=== PATIENT | male | born 1985 ===

== ENCOUNTER 2020-11-24 10:59 | Inpatient (IN) | payer OTHER ==
--- NOTE | 2020-11-24 12:12 | Event Note ---
ED Screening Note Date of service: 11/24/20 Time: 12:08 ED Screening Note: 35-year-old male presents to the emergency room complaining of right upper abdominal pain. He states has been going on for 2 days and last night it got worse. Patient denies any fever chills no nausea no vomiting. He states that he is just having small amount of urine but no blood in his urine. Patient reports he had taken a medication called Mavidol which appears to be Toradol 30 mg for pain. Patient denies any known drug allergies. This initial assessment/diagnostic orders/clinical plan/treatment(s) is/are subject to change based on patients health status, clinical progression and re- assessment by fellow clinical providers in the ED. Further treatment and workup at subsequent clinical providers discretion. Patient/guardian urged not to elope from the ED as their condition may be serious if not clinically assessed and managed. Initial orders include: CBC CMP urinalysis lipase and CT abdomen pelvis with contrast as patient has right upper quadrant pain and tenderness.
[2020-11-24 12:52] LABS: Amorphous Crystals,Urine Few; Bilirubin,Urine NEG (Negative); Blood,Urine SM (Negative); Color,Urine Yellow (Yellow); Mucus,Urine FEW /HPF; Protein,Urine <15 mg/dL mg/dL (Negative); Urobilinogen,Urine < 2.0 mg/dL (<2.0)
[2020-11-24 12:56] LABS: Basophils % (Auto) 0.4 % (0.0-1.8); Eosinophils % (Auto) 0.3 % (0.0-4.3); Hematocrit 43.7 % (35.5-45.6); Hemoglobin 14.9 gm/dl (11.8-15.2); Lymphocytes # (Auto) 1.2 K/mm3 (1.2-5.4); Lymphocytes % (Auto) 10.6 % (13.4-35.0); Mean Corpuscular HGB Conc 34 % (32-34); Mean Corpuscular Volume 92 fl (84-94); Monocytes # (Auto) 0.7 K/mm3 (0.0-0.8); Monocytes % (Auto) 6.2 % (0.0-7.3); Platelet Count 163 K/mm3 (140-440); Red Blood Count 4.75 M/mm3 (3.65-5.03); Red Cell Distribution Width 13.7 % (13.2-15.2)
[2020-11-24 13:09] LABS: Alanine Aminotransferase 335 units/L (7-56); Albumin 4.3 g/dL (3.9-5); BUN/Creatinine Ratio 13; Blood Urea Nitrogen 12 mg/dL (9-20); Hemolysis Index 5
--- NOTE | 2020-11-24 13:39 | Emergency Department Report ---
ED Abdominal Pain HPI - General Chief Complaint: Abdominal Pain Stated Complaint: STOMACH PAIN Time Seen by Provider: 11/24/20 12:00 Source: patient Mode of arrival: Ambulatory Limitations: No Limitations - History of Present Illness Initial Comments: Patient presents with abdominal pain. He is complaining of pain in epigastric and right upper quadrant areas. The started yesterday and magnified today. He states that he ate something today that made the pain worse. He has had no fevers or chills but there is no cough congestion. He does report nausea without vomiting. There is no hematemesis or coffee-ground emesis. Has no melenic stool. He states that years ago he was told that he had inflammation in his gallbladder. He believes that that could be the same thing. He has no back pain associated with this. There is no fevers or chills per there is no trauma. Pain is constant. It does not radiate or migrate. It is worse by palpation and movement. - Related Data Allergies Allergy/AdvReac Type Severity Reaction Status Date / Time No Known Allergies Allergy Verified 11/24/20 11:52 ED Review of Systems ROS: Stated complaint: STOMACH PAIN Other details as noted in HPI Comment: All other systems reviewed and negative Constitutional: denies: fever Eyes: denies: eye pain ENT: denies: throat pain Respiratory: denies: cough Cardiovascular: denies: chest pain Endocrine: denies: unexplained weight loss Gastrointestinal: as per HPI Genitourinary: denies: dysuria Musculoskeletal: denies: back pain Skin: denies: rash Neurological: denies: headache Hematological/Lymphatic: denies: easy bruising ED Past Medical Hx - Past Medical History Previous Medical History?: No - Surgical History Past Surgical History?: No - Family History Family history: other (Gallbladder disease) ED Physical Exam - General Limitations: No Limitations - Head Head exam: Present: atraumatic, normocephalic, normal inspection - Eye Eye exam: Present: normal appearance, PERRL. Absent: scleral icterus, conjunctival injection - ENT ENT exam: Present: normal exam, normal orophraynx, mucous membranes moist - Neck Neck exam: Present: normal inspection. Absent: meningismus - Respiratory Respiratory exam: Present: normal lung sounds bilaterally. Absent: respiratory distress - Cardiovascular Cardiovascular Exam: Present: regular rate, normal rhythm - GI/Abdominal GI/Abdominal exam: Present: soft, tenderness (Right upper quadrant and epigastric), other (Obese). Absent: guarding, rebound - Extremities Exam Extremities exam: Present: normal capillary refill. Absent: pedal edema - Back Exam Back exam: Absent: CVA tenderness (R), CVA tenderness (L) - Neurological Exam Neurological exam: Present: alert, oriented X3, CN II-XII intact, reflexes normal. Absent: motor sensory deficit - Psychiatric Psychiatric exam: Present: normal affect, normal mood - Skin Skin exam: Present: warm, dry ED Course Vital Signs 11/24/20 11:53 Temperature 98.4 F Pulse Rate 78 Respiratory 16 Rate Blood Pressure 153/80 [Left] O2 Sat by Pulse 100 Oximetry - Reevaluation(s) Reevaluation #1: 11/24/20 13:39 IV labs ordered. Ultrasound was ordered. Reevaluation #2: 11/24/20 14:[address] of been noted. Surgery was paged. We will admit. ED Medical Decision Making - Lab Data Result diagrams: 11/24/20 12:29 11/24/20 12:29 - Medical Decision Making Patient presents with epigastric and right upper quadrant pain. He has evidence of gallstone pancreatitis with transaminitis. He does not have leukocytosis. He does not appear to be septic or toxic. We will proceed with admission. He certainly does not have peritoneal findings at this time. There is no concern for perforation. CT had reported some inflammation along the duodenum, but I believe this is all pancreatitis in nature. Case has been discussed with surgery and the hospitalist. Critical Care Time: No Critical care attestation.: If time is entered above; I have spent that time in minutes in the direct care of this critically ill patient, excluding procedure time. ED Disposition Clinical Impression: Transaminitis Pancreatitis due to biliary obstruction Qualifiers: Chronicity: acute Acute pancreatitis complication: no infection or necrosis Qualified Code(s): K85.10 - Biliary acute pancreatitis without necrosis or infection Cholelithiasis Qualifiers: Cholelithiasis location: gallbladder Cholecystitis presence: without cholecystitis Disposition: 09 ADMITTED INPATIENT Is pt being admited?: Yes Does the pt Need Aspirin: No Condition: Stable
--- NOTE | 2020-11-24 13:55 | Cat Scan Report ---
CT ABDOMEN AND PELVIS WITH CONTRAST HISTORY: Right upper quadrant pain and tenderness OMNI 300 100 ML. COMPARISON: None. TECHNIQUE: CT images of the abdomen and pelvis were obtained following administration of intravenous contrast. All CT scans at this location are performed using CT dose reduction for ALARA by means of automated exposure control. CONTRAST: 100 ml of intravenous contrast administered. FINDINGS: Lungs/bones: Lung bases are clear. No acute osseous abnormality. Abdomen/pelvis: There is inflammation tracking along the duodenal C-loop, greatest in the second/thi rd segments. Inflammation also extends along the pancreas. No obvious mass, obstruction, or stone dis ease. No biliary or pancreatic duct dilatation. Enlarged regional lymph nodes are noted, likely react yuniel. There is cholelithiasis without inflammation. There is hepatic steatosis. There is otherwise unremark able. The spleen, adrenals, right kidney, and remainder the proximal GI tract appear unremarkable. Th ere is punctate nonobstructive nephrolithiasis in the upper pole the left kidney measuring 1 mm. Urinary bladder and prostate are normal with no pelvic free fluid or acute colonic abnormality. The a ppendix is normal. IMPRESSION: 1. Inflammatory change centered along the second/third segments of the duodenum and possibly involvin g the pancreas. Differential considerations include duodenitis versus pancreatitis. Correlate with li pase level. 2. Additional incidental findings as above. Signer Name: Humberto Colon MD Signed: 11/24/2020 1:50 PM Workstation Name: [id number]
--- NOTE | 2020-11-24 14:13 | History and Physical Report ---
History of Present Illness Chief complaint: My stomach hurts History of present illness: 35 YO Male with Obesity presents to ED for evaluation. Patient reports "my stomach hurts". Patient states that he has experienced abdominal pain over the last 2 days with worsening symptoms over the last 12 hours. Patient localizes the epigastric area as the site of his pain. Patient states that pain is 5/10, constant nonradiating without exacerbating or alleviating factors. Patient transported to [facility] via private vehicle for further care and evaluation of the aforementioned symptoms. The patient was seen and evaluated in the emergency department. All lab and imaging studies reviewed. Patient with CT scan of the abdomen and pelvis as well as abdominal ultrasound and found to have evidence of gallstone pancreatitis. Surgical team consulted in ED. Patient admitted to medical floor and treated with supportive care, bowel rest. Patient denies fever, chills, chest pain, palpitation, productive cough, skin rash, recent ill contacts, known exposure to COVID-19. No prior admission for review. No medication listed at time of admission for reconciliation. Past History Past Medical History: No medical history, other (Reviewed) Past Surgical History: No surgical history, Other (Reviewed) Social history: single. denies: smoking, alcohol abuse, prescription drug abuse Family history: denies: no significant family history Medications and Allergies Allergies Allergy/AdvReac Type Severity Reaction Status Date / Time No Known Allergies Allergy Verified 11/24/20 11:52 Home Medications Medication Instructions Recorded Confirmed Last Taken Type No Known Home Medications [No 11/24/20 11/24/20 Unknown History Reported Home Medications] Review of Systems Constitutional: no weight loss, no weight gain, no fever, no chills Ears, nose, mouth and throat: no ear pain, no decreased hearing, no nose pain, no nasal discharge, no sinus pain Cardiovascular: no chest pain, no palpitations, no rapid/irregular heart beat, no syncope, no lightheadedness Respiratory: no cough, no excessive sputum, no shortness of breath Gastrointestinal: abdominal pain, no nausea, no diarrhea, no hematemesis Genitourinary Male: no dysuria, no hematuria, no flank pain, no urinary frequency, no urinary hesitancy Rectal: no pain, no incontinence, no bleeding Musculoskeletal: no neck stiffness, no neck pain, no shooting arm pain, no arm numbness/tingling, no redness of joints Integumentary: no rash, no redness, no sores, no jaundice, no boils, no blisters Neurological: no head injury, no transient paralysis, no paralysis, no weakness, no tingling, no tremors, no lack of coordination Psychiatric: no anxiety, no memory loss, no insomnia, no hypersomnia, no hallucinations Endocrine: no cold intolerance, no excessive thirst, no polydipsia, no nocturia Hematologic/Lymphatic: no easy bruising, no lymphedema Allergic/Immunologic: no allergic rhinitis, no anaphylaxis Exam - Constitutional Vitals: Temp Pulse Resp BP Pulse Ox 98.4 F 78 16 153/80 100 11/24/20 11:53 11/24/20 11:53 11/24/20 11:53 11/24/20 11:53 11/24/20 11:53 General appearance: Present: mild distress, obese - EENT Eyes: Present: PERRL ENT: hearing intact, clear oral mucosa - Neck Neck: Present: supple, normal ROM - Respiratory Respiratory effort: normal Respiratory: bilateral: CTA - Cardiovascular Heart Sounds: Present: S1 & S2. Absent: rub, click - Extremities Extremities: pulses symmetrical, No edema Peripheral Pulses: within normal limits - Abdominal General gastrointestinal: Present: soft, tender, non-distended, normal bowel sounds Male genitourinary: Present: normal - Integumentary Integumentary: Present: clear, warm, dry - Musculoskeletal Musculoskeletal: gait normal, strength equal bilaterally - Psychiatric Psychiatric: appropriate mood/affect, intact judgment & insight - Neurologic Neurologic: CNII-XII intact, moves all extremities Results - Labs CBC & Chem 7: 11/24/20 12:29 11/24/20 12:29 Labs: Abnormal lab results 11/24/20 11/24/20 Range/Units 12:29 12:29 Lymph % (Auto) 10.6 L (13.4-35.0) % Seg Neutrophils % 82.5 H (40.0-70.0) % Seg Neutrophils # 9.1 H (1.8-7.7) K/mm3 Glucose 108 H (75-100) mg/dL Total Bilirubin 1.60 H (0.1-1.2) mg/dL AST 226 H (5-40) units/L ALT 335 H (7-56) units/L Alkaline Phosphatase 170 H (35-129) units/L Lipase 1470 H (13-60) units/L Assessment and Plan - Patient Problems (1) Pancreatitis, gallstone Current Visit: Yes Status: Acute Plan to address problem: Bowel rest, IV fluid resuscitation therapy, surgical team consulted in ED, further care and evaluation as per surgical team in a.m., n.p.o. (2) Obesity hypoventilation syndrome Current Visit: Yes Status: Acute Plan to address problem: Balanced diet, increase physical activity at discharge, outpatient pulmonary follow-up for sleep study. (3) DVT prophylaxis Current Visit: Yes Status: Acute Plan to address problem: SCDs bilateral lower extremities while in bed, patient is ambulatory
[2020-11-24] MEDS ORDERED: ONDANSETRON 4 MG/2 ML INJ IV PRN (14:20)
[2020-11-24] MEDS ORDERED: ACETAMINOPHEN 325 MG TAB PO PRN (14:20)
[2020-11-24] MEDS ORDERED: ALBUTEROL 2.5 MG/3 ML NEBU IH PRN (14:20)
[2020-11-24] MEDS ORDERED: KETOROLAC 30 MG/1 ML INJ IV ONE (14:23)
--- NOTE | 2020-11-24 15:28 | Ultrasound Report ---
ULTRASOUND ABDOMEN, LIMITED (RIGHT UPPER QUADRANT) INDICATION: Right upper quadrant pain. COMPARISON: CT of the abdomen and pelvis earlier today. FINDINGS: Suboptimal study due to bowel gas. PANCREAS: Visualized portion shows no significant abnormality. LIVER: 15.6 cm in length with moderate generalized increased echogenicity and focal sparing adjacent to the gallbladder. GALLBLADDER: Multiple small gallstones. The gallbladder is normal in size without wall thickening. BILE DUCTS: No significant abnormality. Common bile duct measures 3.3 mm. FREE FLUID: None. ADDITIONAL FINDINGS: Images of the right kidney are unremarkable. IMPRESSION: 1. Cholelithiasis without sonographic evidence of acute cholecystitis. 2. Moderate diffuse fatty infiltration of the liver. Signer Name: Art Rodriguez MD Signed: 11/24/2020 3:23 PM Workstation Name: [id number]
[2020-11-24] MEDS: oxyCODONE /ACETAMINOPHEN 5-325MG TAB PO PRN (19:28)
[2020-11-25] MEDS: HYDROmorphone 1 MG/1 ML INJ IV PRN ×2 (00:13→09:07)
[2020-11-25] MEDS: SODIUM CHLORIDE 0.9% 1000 ML 1,000 ML IV SCH ×3 (00:13→21:03)
[2020-11-25 05:49] LABS: Alanine Aminotransferase 225 units/L (7-56); Albumin 3.9 g/dL (3.9-5); BUN/Creatinine Ratio 15; Blood Urea Nitrogen 12 mg/dL (9-20); Calcium 8.5 mg/dL (8.4-10.2); Hemolysis Index 8
--- NOTE | 2020-11-25 12:15 | Consultation ---
History of Present Illness Consult date: 11/25/20 Reason for consult: abdominal pain - History of present illness History of present illness: 35 yo male with 2 day h/o RUQ/epigastric pain with nausea without vomiting, fever or chills. Pt had similar pain about a year ago. Denies alcohol or NSAID use. Feels much better today. Past History Past Medical History: No medical history, other (Reviewed) Past Surgical History: No surgical history, Other (Reviewed) Social history: single. denies: smoking, alcohol abuse, prescription drug abuse Family history: denies: no significant family history Medications and Allergies Allergies Allergy/AdvReac Type Severity Reaction Status Date / Time No Known Allergies Allergy Verified 11/24/20 11:52 Home Medications Medication Instructions Recorded Confirmed Last Taken Type No Known Home Medications [No 11/24/20 11/24/20 Unknown History Reported Home Medications] Active Meds: Active Medications Acetaminophen (Acetaminophen 325 Mg Tab) 650 mg PO Q4H PRN PRN Reason: Pain MILD(1-3)/Fever >100.5/PAINTING Albuterol (Albuterol 2.5 Mg/3 Ml Nebu) 2.5 mg IH Q4HRT PRN PRN Reason: Shortness Of Breath Hydromorphone HCl (Hydromorphone 1 Mg/1 Ml Inj) 0.5 mg IV Q6H PRN PRN Reason: Pain , Severe (7-10) Last Admin: 11/25/20 09:07 Dose: 0.5 mg Documented by: Sodium Chloride (Nacl 0.9% 1000 Ml) 1,000 mls @ 125 mls/hr IV DIRECT SHARONDA Last Admin: 11/25/20 00:13 Dose: 125 mls/hr Documented by: Ondansetron HCl (Ondansetron 4 Mg/2 Ml Inj) 4 mg IV Q8H PRN PRN Reason: Nausea And Vomiting Last Admin: 11/24/20 19:28 Dose: 4 mg Documented by: Oxycodone/Acetaminophen (Oxycodone /Acetaminophen 5-325mg Tab) 1 tab PO Q12H PRN PRN Reason: Pain, Moderate (4-6) Last Admin: 11/24/20 19:28 Dose: 1 tab Documented by: Sodium Chloride (Sodium Chloride 0.9% 10 Ml Flush Syringe) 10 ml IV BID SHARONDA Last Admin: 11/25/20 09:07 Dose: 10 ml Documented by: Sodium Chloride (Sodium Chloride 0.9% 10 Ml Flush Syringe) 10 ml IV PRN PRN PRN Reason: LINE FLUSH Review of Systems All systems: negative (none) Exam Vital Signs Temp Pulse Resp BP Pulse Ox 98.4 F 78 16 153/80 100 11/24/20 11:53 11/24/20 11:53 11/24/20 11:53 11/24/20 11:53 11/24/20 11:53 - General physical appearance Positive: well developed, well nourished, no distress - Eyes Positive: PERRL, normal occular movement - ENT Positive: normal pinna, normal nares, normal mucosa, no hearing loss, no congestion - Neck Positive: no masses, no bruits, trachea midline, no venous distension - Respiratory Positive: normal expansion, normal respiratory effort, clear to auscultation - Cardiovascular Rhythm: regular Heart Sounds: Present: S1 & S2. Absent: rub, click - Extremities Extremities: no ischemia, pulses symmetrical, No edema - Breasts Breasts: normal, no mass, no skin changes - Abdomen Abdomen: Present: soft, bowel sounds normal. Absent: tender, distended Hernia: none - Genitourinary Male Genitourinary: normal Female Genitourinary: normal - Integumentary no rash, no growths, no abnormal pigmentation - Neurologic Neurologic: alert and oriented to time, place and person, motor strength and sensation are grossly intact - Musculoskeletal normal gait, normal posture - Psychiatric Psychiatric: appropriate mood/affect, intact judgment & insight Results - Labs 11/24/20 12:29 11/25/20 04:52 Abnormal lab results 11/24/20 11/24/20 11/25/20 Range/Units 12:29 12:29 04:52 Lymph % (Auto) 10.6 L (13.4-35.0) % Seg Neutrophils % 82.5 H (40.0-70.0) % Seg Neutrophils # 9.1 H (1.8-7.7) K/mm3 Carbon Dioxide 32 H (22-30) mmol/L Glucose 108 H (75-100) mg/dL Total Bilirubin 1.60 H (0.1-1.2) mg/dL AST 226 H 89 H (5-40) units/L ALT 335 H 225 H (7-56) units/L Alkaline Phosphatase 170 H 150 H (35-129) units/L Lipase 1470 H 641 H (13-60) units/L Diabetes panel 11/24/20 11/25/20 Range/Units 12:29 04:52 Sodium 139 141 (137-145) mmol/L Potassium 4.4 3.8 (3.6-5.0) mmol/L Chloride 102.4 104.6 (98-107) mmol/L Carbon Dioxide 29 32 H (22-30) mmol/L BUN 12 12 (9-20) mg/dL Creatinine 0.9 0.8 (0.8-1.3) mg/dL Glucose 108 H 92 (75-100) mg/dL Calcium 9.0 8.5 (8.4-10.2) mg/dL AST 226 H 89 H (5-40) units/L ALT 335 H 225 H (7-56) units/L Alkaline Phosphatase 170 H 150 H (35-129) units/L Total Protein 7.9 7.2 (6.3-8.2) g/dL Albumin 4.3 3.9 (3.9-5) g/dL Calcium panel 11/24/20 11/25/20 Range/Units 12:29 04:52 Calcium 9.0 8.5 (8.4-10.2) mg/dL Albumin 4.3 3.9 (3.9-5) g/dL Pituitary panel 11/24/20 11/25/20 Range/Units 12:29 04:52 Sodium 139 141 (137-145) mmol/L Potassium 4.4 3.8 (3.6-5.0) mmol/L Chloride 102.4 104.6 (98-107) mmol/L Carbon Dioxide 29 32 H (22-30) mmol/L BUN 12 12 (9-20) mg/dL Creatinine 0.9 0.8 (0.8-1.3) mg/dL Glucose 108 H 92 (75-100) mg/dL Calcium 9.0 8.5 (8.4-10.2) mg/dL Adrenal panel 11/24/20 11/25/20 Range/Units 12:29 04:52 Sodium 139 141 (137-145) mmol/L Potassium 4.4 3.8 (3.6-5.0) mmol/L Chloride 102.4 104.6 (98-107) mmol/L Carbon Dioxide 29 32 H (22-30) mmol/L BUN 12 12 (9-20) mg/dL Creatinine 0.9 0.8 (0.8-1.3) mg/dL Glucose 108 H 92 (75-100) mg/dL Calcium 9.0 8.5 (8.4-10.2) mg/dL Total Bilirubin 1.60 H 1.10 (0.1-1.2) mg/dL AST 226 H 89 H (5-40) units/L ALT 335 H 225 H (7-56) units/L Alkaline Phosphatase 170 H 150 H (35-129) units/L Total Protein 7.9 7.2 (6.3-8.2) g/dL Albumin 4.3 3.9 (3.9-5) g/dL - Imaging CT scan - abdomen: report reviewed CT scan - pelvis: report reviewed US - abdomen: report reviewed Assessment and Plan - Patient Problems (1) Acute pancreatitis Current Visit: Yes Status: Acute Plan to address problem: 1) CLD 2) Recommend GI consult 3) CBC, CMP and lipase tomorrow
[2020-11-25] MEDS: oxyCODONE /ACETAMINOPHEN 5-325MG TAB PO PRN (21:03)
[2020-11-26] MEDS: SODIUM CHLORIDE 0.9% 1000 ML 1,000 ML IV SCH ×3 (05:10→18:14)
--- NOTE | 2020-11-26 06:06 | Progress Note ---
Assessment and Plan Assessment and Plan - Patient Problems (1) Pancreatitis, gallstone Current Visit: Yes Status: Acute Plan to address problem: Patient symptomatically better Recheck lipase and amylase and LFTs (2) Obesity hypoventilation syndrome Current Visit: Yes Status: Acute Plan to address problem: Balanced diet, increase physical activity at discharge, outpatient pulmonary follow-up for sleep study. Check echocardiogram for ejection fraction (3) DVT prophylaxis Current Visit: Yes Status: Acute Plan to address problem: SCDs bilateral lower extremities while in bed, patient is ambulatory Discharge planning issues If patient stable and pain-free patient can be discharged tomorrow Check echocardiogram Subjective Date of service: 11/25/20 Principal diagnosis: Acute pancreatitis Interval history: 35 YO Male with Obesity presents to ED for evaluation. Patient reports "my stomach hurts". Patient states that he has experienced abdominal pain over the last 2 days with worsening symptoms over the last 12 hours. Patient localizes the epigastric area as the site of his pain. Patient states that pain is 5/10, constant nonradiating without exacerbating or alleviating factors. Patient transported to [facility] via private vehicle for further care and evaluation of the aforementioned symptoms. The patient was seen and evaluated in the emergency department. All lab and imaging studies reviewed. Patient with CT scan of the abdomen and pelvis as well as abdominal ultrasound and found to have evidence of gallstone pancreatitis. Surgical team consulted in ED. Patient admitted to medical floor and treated with supportive care, bowel rest. Patient denies fever, chills, chest pain, palpitation, productive cough, skin rash, recent ill contacts, known exposure to COVID-19. No prior admission for review. No medication listed at time of admission for reconciliation. 11/25/2020 Abdominal pain better Patient is more comfortable Objective - Constitutional Vitals: Vital Signs - 12hr 11/25/20 11/25/20 11/25/20 19:33 23:00 23:52 Temperature 99.0 F 98.7 F Pulse Rate 85 67 Respiratory 20 20 18 Rate Blood Pressure 134/78 118/63 O2 Sat by Pulse 97 97 96 Oximetry 11/25/20 11/26/20 23:56 04:11 Temperature 97.9 F Pulse Rate Respiratory 18 Rate Blood Pressure 142/60 O2 Sat by Pulse 96 Oximetry General appearance: Present: no acute distress, well-nourished - EENT Eyes: PERRL, EOM intact ENT: hearing intact, clear oral mucosa Ears: bilateral: normal - Neck Neck: supple, normal ROM - Respiratory Respiratory effort: normal Respiratory: bilateral: CTA - Breasts Breasts: normal - Cardiovascular Heart rate: 78 Rhythm: regular Heart Sounds: Present: S1 & S2. Absent: gallop, rub Extremities: pulses intact, No edema, normal color, Full ROM - Gastrointestinal General gastrointestinal: Present: tender, normal bowel sounds Localized gastrointestinal: tender: diffuse - Genitourinary Male genitourinary: normal - Integumentary Integumentary: clear, warm, dry - Musculoskeletal Musculoskeletal: 1, strength equal bilaterally - Neurologic Neurologic: moves all extremities - Psychiatric Psychiatric: memory intact, appropriate mood/affect, intact judgment & insight - Allied health notes Allied health notes reviewed: nursing, case management - Labs CBC & Chem 7: 11/24/20 12:29 11/25/20 04:52
[2020-11-26 06:09] LABS: Basophils % (Auto) 0.2 % (0.0-1.8); Eosinophils # (Auto) 0.2 K/mm3 (0.0-0.4); Eosinophils % (Auto) 2.3 % (0.0-4.3); Hematocrit 38.6 % (35.5-45.6); Lymphocytes # (Auto) 1.9 K/mm3 (1.2-5.4); Lymphocytes % (Auto) 18.6 % (13.4-35.0); Mean Corpuscular HGB Conc 34 % (32-34); Mean Corpuscular Volume 92 fl (84-94); Monocytes # (Auto) 0.9 K/mm3 (0.0-0.8); Monocytes % (Auto) 8.4 % (0.0-7.3); Platelet Count 140 K/mm3 (140-440); Red Blood Count 4.18 M/mm3 (3.65-5.03); Red Cell Distribution Width 13.2 % (13.2-15.2)
[2020-11-26 06:26] LABS: Alanine Aminotransferase 135 units/L (7-56); Albumin 3.8 g/dL (3.9-5); Blood Urea Nitrogen 9 mg/dL (9-20); Calcium 7.9 mg/dL (8.4-10.2); Hemolysis Index 9
[2020-11-26 06:41] LABS: BUN/Creatinine Ratio 13
--- NOTE | 2020-11-26 13:06 | Progress Note ---
Assessment and Plan - Patient Problems (1) Acute pancreatitis Current Visit: Yes Status: Acute Plan to address problem: 1) Awaiting GI consult Subjective Date of service: 11/26/20 Patient Reports: Positive: no new complaints, feels better, tolerating liquids well Objective Vital Signs - 12hr 11/26/20 11/26/20 11/26/20 04:11 08:00 10:00 Temperature 97.9 F Respiratory 18 Rate Blood Pressure 142/60 O2 Sat by Pulse 96 98 Oximetry - Abdomen soft, bowel sounds normal (NT, ND) - Labs 11/26/20 05:31 11/26/20 05:31 Diabetes panel 11/26/20 Range/Units 05:31 Sodium 138 (137-145) mmol/L Potassium 3.8 (3.6-5.0) mmol/L Chloride 102.8 (98-107) mmol/L Carbon Dioxide 30 (22-30) mmol/L BUN 9 (9-20) mg/dL Creatinine 0.7 L (0.8-1.3) mg/dL Glucose 90 (75-100) mg/dL Calcium 7.9 L (8.4-10.2) mg/dL AST 34 (5-40) units/L ALT 135 H (7-56) units/L Alkaline Phosphatase 128 (35-129) units/L Total Protein 6.3 (6.3-8.2) g/dL Albumin 3.8 L (3.9-5) g/dL Calcium panel 11/26/20 Range/Units 05:31 Calcium 7.9 L (8.4-10.2) mg/dL Albumin 3.8 L (3.9-5) g/dL Pituitary panel 11/26/20 Range/Units 05:31 Sodium 138 (137-145) mmol/L Potassium 3.8 (3.6-5.0) mmol/L Chloride 102.8 (98-107) mmol/L Carbon Dioxide 30 (22-30) mmol/L BUN 9 (9-20) mg/dL Creatinine 0.7 L (0.8-1.3) mg/dL Glucose 90 (75-100) mg/dL Calcium 7.9 L (8.4-10.2) mg/dL Adrenal panel 11/26/20 Range/Units 05:31 Sodium 138 (137-145) mmol/L Potassium 3.8 (3.6-5.0) mmol/L Chloride 102.8 (98-107) mmol/L Carbon Dioxide 30 (22-30) mmol/L BUN 9 (9-20) mg/dL Creatinine 0.7 L (0.8-1.3) mg/dL Glucose 90 (75-100) mg/dL Calcium 7.9 L (8.4-10.2) mg/dL Total Bilirubin 1.10 (0.1-1.2) mg/dL AST 34 (5-40) units/L ALT 135 H (7-56) units/L Alkaline Phosphatase 128 (35-129) units/L Total Protein 6.3 (6.3-8.2) g/dL Albumin 3.8 L (3.9-5) g/dL
--- NOTE | 2020-11-26 18:17 | Progress Note ---
Assessment and Plan Assessment and plan: --Acute pancreatitis, gallstone Current Visit: Yes Status: Acute Patient symptoms significantly improved Lipase levels and LFTs trending down to near normal levels Tolerating clear liquids,We will consult GI Surgery evaluation noted, Dr. Garcia recommend GI consult, --Cholelithiasis; without cholecystitis Current Visit: Yes Status: Acute Surgery evaluated the patient Recommend GI consult Continue supportive care --Acute transaminitis; Current Visit: Yes Status: Acute elevated LFTs due to acute pancreatitis Trending down to near normal levels Closely monitor --Obesity BMI 37.0 Current Visit: Yes Status: Acute Patient advised dietary modification exercise as tolerated weight reduction When medically stable , may benefit from outpatient bariatric surgery evaluation for weight reduction program, When patient is stable --DVT prophylaxis Current Visit: Yes Status: Acute SCDs bilateral lower extremities while in bed, patient is ambulatory Closely monitor the patient and adjust management as needed Follow GI evaluation recommendation Plan of care reviewed with the patient and his nurse History Interval history: I have seen and examined the patient at the bedside Patient's chart and medications reviewed Patient complains of vague abdominal pain Significantly improved since yesterday Vital signs noted Hospitalist Physical - Constitutional Vitals: Temp Pulse Resp BP Pulse Ox 97.0 F L 80 17 148/96 98 11/26/20 17:46 11/26/20 18:06 11/26/20 17:46 11/26/20 17:46 11/26/20 18:06 General appearance: Present: no acute distress, well-nourished, obese (Morbidly obese) - EENT Eyes: Present: PERRL, EOM intact - Neck Neck: Present: supple, normal ROM - Respiratory Respiratory effort: normal Respiratory: bilateral: diminished, negative: rales, rhonchi, wheezing - Cardiovascular Rhythm: regular Heart Sounds: Present: S1 & S2 - Extremities Extremities: no ischemia, No edema - Abdominal General gastrointestinal: soft, non-tender, non-distended, normal bowel sounds - Integumentary Integumentary: Present: clear, warm - Psychiatric Psychiatric: appropriate mood/affect, cooperative - Neurologic Neurologic: moves all extremities Results - Labs CBC & Chem 7: 11/26/20 05:31 11/26/20 05:31 Labs: Laboratory Last Values WBC 10.2 K/mm3 (4.5-11.0) 11/26/20 05:31 RBC 4.18 M/mm3 (3.65-5.03) 11/26/20 05:31 Hgb 13.0 gm/dl (11.8-15.2) 11/26/20 05:31 Hct 38.6 % (35.5-45.6) 11/26/20 05:31 MCV 92 fl (84-94) 11/26/20 05:31 MCH 31 pg (28-32) 11/26/20 05:31 MCHC 34 % (32-34) 11/26/20 05:31 RDW 13.2 % (13.2-15.2) 11/26/20 05:31 Plt Count 140 K/mm3 (140-440) 11/26/20 05:31 Lymph % (Auto) 18.6 % (13.4-35.0) 11/26/20 05:31 [place] % (Auto) 8.4 % (0.0-7.3) H 11/26/20 05:31 Eos % (Auto) 2.3 % (0.0-4.3) 11/26/20 05:31 Baso % (Auto) 0.2 % (0.0-1.8) 11/26/20 05:31 Lymph # (Auto) 1.9 K/mm3 (1.2-5.4) 11/26/20 05:31 [place] # (Auto) 0.9 K/mm3 (0.0-0.8) H 11/26/20 05:31 Eos # (Auto) 0.2 K/mm3 (0.0-0.4) 11/26/20 05:31 Baso # (Auto) 0.0 K/mm3 (0.0-0.1) 11/26/20 05:31 Seg Neutrophils % 70.5 % (40.0-70.0) H 11/26/20 05:31 Seg Neutrophils # 7.2 K/mm3 (1.8-7.7) 11/26/20 05:31 Sodium 138 mmol/L (137-145) 11/26/20 05:31 Potassium 3.8 mmol/L (3.6-5.0) 11/26/20 05:31 Chloride 102.8 mmol/L (98-107) 11/26/20 05:31 Carbon Dioxide 30 mmol/L (22-30) 11/26/20 05:31 Anion Gap 9 mmol/L 11/26/20 05:31 BUN 9 mg/dL (9-20) 11/26/20 05:31 Creatinine 0.7 mg/dL (0.8-1.3) L 11/26/20 05:31 Estimated GFR > 60 ml/min 11/26/20 05:31 BUN/Creatinine Ratio 13 % 11/26/20 05:31 Glucose 90 mg/dL (75-100) 11/26/20 05:31 POC Glucose 91 mg/dL (70-105) 11/25/20 08:08 Calcium 7.9 mg/dL (8.4-10.2) L 11/26/20 05:31 Total Bilirubin 1.10 mg/dL (0.1-1.2) 11/26/20 05:31 AST 34 units/L (5-40) 11/26/20 05:31 ALT 135 units/L (7-56) H 11/26/20 05:31 Alkaline Phosphatase 128 units/L (35-129) 11/26/20 05:31 Total Protein 6.3 g/dL (6.3-8.2) 11/26/20 05:31 Albumin 3.8 g/dL (3.9-5) L 11/26/20 05:31 Albumin/Globulin Ratio 1.5 % 11/26/20 05:31 Lipase 71 units/L (13-60) H 11/26/20 05:31 Urine Color Yellow (Yellow) 11/24/20 Unknown Urine Turbidity Slightly-cloudy (Clear) 11/24/20 Unknown Urine pH 5.0 (5.0-7.0) 11/24/20 Unknown Ur Specific [place] 1.017 (1.003-1.030) 11/24/20 Unknown Urine Protein <15 mg/dl mg/dL (Negative) 11/24/20 Unknown Urine Glucose (UA) Neg mg/dL (Negative) 11/24/20 Unknown Urine Ketones Neg mg/dL (Negative) 11/24/20 Unknown Urine Blood Sm (Negative) 11/24/20 Unknown Urine Nitrite Neg (Negative) 11/24/20 Unknown Urine Bilirubin Neg (Negative) 11/24/20 Unknown Urine Urobilinogen < 2.0 mg/dL (<2.0) 11/24/20 Unknown Ur Leukocyte Esterase Neg (Negative) 11/24/20 Unknown Urine WBC (Auto) 2.0 /HPF (0.0-6.0) 11/24/20 Unknown Urine RBC (Auto) 3.0 /HPF (0.0-6.0) 11/24/20 Unknown U Epithel Cells (Auto) 3.0 /HPF (0-13.0) 11/24/20 Unknown Amorphous Crystals Few 11/24/20 Unknown Urine Mucus Few /HPF 11/24/20 Unknown Gong/IV: Voiding Method Toilet Active Medications - Current Medications Current Medications: Generic Name Dose Route Start Last Admin Trade Name Freq PRN Reason Stop Dose Admin Acetaminophen 650 mg 11/24/20 14:20 Acetaminophen 325 Mg Tab PO Q4H PRN Pain MILD(1-3)/Fever >100.5/PAINTING Albuterol 2.5 mg 11/24/20 14:20 Albuterol 2.5 Mg/3 Ml Nebu IH Q4HRT PRN Shortness Of Breath Hydromorphone HCl 0.5 mg 11/24/20 14:20 11/25/20 09:07 Hydromorphone 1 Mg/1 Ml Inj IV 0.5 mg Q6H PRN Administration Pain , Severe (7-10) Sodium Chloride 1,000 mls @ 125 mls/hr 11/24/20 14:30 11/26/20 18:14 Nacl 0.9% 1000 Ml IV 125 mls/hr DIRECT SHARONDA Administration Ondansetron HCl 4 mg 11/24/20 14:20 11/24/20 19:28 Ondansetron 4 Mg/2 Ml Inj IV 4 mg Q8H PRN Administration Nausea And Vomiting Oxycodone/Acetaminophen 1 tab 11/24/20 14:20 11/25/20 21:03 Oxycodone /Acetaminophen 5-325mg Tab PO 1 tab Q12H PRN Administration Pain, Moderate (4-6) Sodium Chloride 10 ml 11/24/20 22:00 11/26/20 09:14 Sodium Chloride 0.9% 10 Ml Flush Syringe IV 10 ml BID SHARONDA Administration Sodium Chloride 10 ml 11/24/20 14:20 Sodium Chloride 0.9% 10 Ml Flush Syringe IV PRN PRN LINE FLUSH
[2020-11-26] MEDS: ENOXAPARIN 40 MG/0.4 ML INJ SUB-Q SCH (22:55)
[2020-11-27] MEDS: oxyCODONE /ACETAMINOPHEN 5-325MG TAB PO PRN (01:38)
[2020-11-27] MEDS: SODIUM CHLORIDE 0.9% 1000 ML 1,000 ML IV SCH ×3 (01:41→22:23)
--- NOTE | 2020-11-27 09:42 | Progress Note ---
Assessment and Plan Assessment and plan: --Acute pancreatitis, gallstone Current Visit: Yes Status: Acute Patient symptoms significantly improved Lipase levels and LFTs trending down to near normal levels Tolerating clear liquids, GI and surgery evaluated the patient GI recommend MRCP, follow report --Cholelithiasis; without cholecystitis Current Visit: Yes Status: Acute Surgery evaluated the patient No surgical intervention at this point Supportive care --Acute transaminitis; Current Visit: Yes Status: Acute elevated LFTs due to acute pancreatitis Trending down to near normal levels GI evaluated --Obesity BMI 37.0 Current Visit: Yes Status: Acute Patient advised dietary modification exercise as tolerated weight reduction When medically stable , may benefit from outpatient bariatric surgery evaluation for weight reduction program, When patient is stable --DVT prophylaxis Current Visit: Yes Status: Acute SCDs bilateral lower extremities while in bed, patient is ambulatory Closely monitor the patient and adjust management as needed Follow MRCP and GI recommendations Advance diet to regular Brief history and daily hospital course: 35 YO Male with Obesity presents to ED for evaluation. Patient reports "my stomach hurts". Patient states that he has experienced abdominal pain over the last 2 days with worsening symptoms over the last 12 hours. Patient localizes t he epigastric area as the site of his pain. Patient states that pain is 5/10, constant nonradiating without exacerbating or alleviating factors. Patient transported to [facility] via private vehicle for further care and evaluation of the aforementioned symptoms. The patient was seen and evaluated in the emergency department. All lab and imaging studies reviewed. Patient with CT scan of the abdomen and pelvis as well as abdominal ultrasound and found to have evidence of gallstone pancreatitis. Surgical team consulted in ED. Patient admitted to medical floor and treated with supportive care, bowel rest. Patient denies fever, chills, chest pain, palpitation, productive cough, skin rash, recent ill contacts, known exposure to COVID-19. No prior admission for review. No medication listed at time of admission for reconciliation. 11/25/2020 Abdominal pain better Patient is more comfortable 11/26/2020; patient's pancreatic enzymes trending down GI consulted, started on clear liquids, continue current management 11/27/2020; patient's lipase decreased to 71 today Transaminases trending down to near normal Patient still has some abdominal pain, GI evaluation noted GI recommended MRCP, follow the test and report Cultures management as needed History Interval history: I have seen and examined the patient at the bedside patient's chart and medications reviewed Patient feels slightly better No new complaints GI evaluation noted MRCP today Hospitalist Physical - Constitutional Vitals: Temp Pulse Resp BP Pulse Ox 97.7 F 56 L 16 116/65 98 11/27/20 04:27 11/27/20 04:27 11/27/20 04:27 11/27/20 04:27 11/27/20 04:27 General appearance: Present: no acute distress, well-nourished, obese (Morbidly obese) - EENT Eyes: Present: PERRL, EOM intact - Neck Neck: Present: supple, normal ROM - Respiratory Respiratory effort: normal Respiratory: bilateral: diminished, negative: rales, rhonchi, wheezing - Cardiovascular Rhythm: regular Heart Sounds: Present: S1 & S2 - Extremities Extremities: no ischemia, No edema - Abdominal General gastrointestinal: soft, non-tender, non-distended, normal bowel sounds - Integumentary Integumentary: Present: clear, warm - Psychiatric Psychiatric: appropriate mood/affect, cooperative - Neurologic Neurologic: CNII-XII intact, moves all extremities Results - Labs CBC & Chem 7: 11/26/20 05:31 11/26/20 05:31 Labs: Laboratory Last Values WBC 10.2 K/mm3 (4.5-11.0) 11/26/20 05:31 RBC 4.18 M/mm3 (3.65-5.03) 11/26/20 05:31 Hgb 13.0 gm/dl (11.8-15.2) 11/26/20 05:31 Hct 38.6 % (35.5-45.6) 11/26/20 05:31 MCV 92 fl (84-94) 11/26/20 05:31 MCH 31 pg (28-32) 11/26/20 05:31 MCHC 34 % (32-34) 11/26/20 05:31 RDW 13.2 % (13.2-15.2) 11/26/20 05:31 Plt Count 140 K/mm3 (140-440) 11/26/20 05:31 Lymph % (Auto) 18.6 % (13.4-35.0) 11/26/20 05:31 [facility] % (Auto) 8.4 % (0.0-7.3) H 09/20/21 05:31 Eos % (Auto) 2.3 % (0.0-4.3) 11/26/20 05:31 Baso % (Auto) 0.2 % (0.0-1.8) 11/26/20 05:31 Lymph # (Auto) 1.9 K/mm3 (1.2-5.4) 11/26/20 05:31 [facility] # (Auto) 0.9 K/mm3 (0.0-0.8) H 11/26/20 05:31 Eos # (Auto) 0.2 K/mm3 (0.0-0.4) 11/26/20 05:31 Baso # (Auto) 0.0 K/mm3 (0.0-0.1) 11/26/20 05:31 Seg Neutrophils % 70.5 % (40.0-70.0) H 11/26/20 05:31 Seg Neutrophils # 7.2 K/mm3 (1.8-7.7) 11/26/20 05:31 Sodium 138 mmol/L (137-145) 11/26/20 05:31 Potassium 3.8 mmol/L (3.6-5.0) 11/26/20 05:31 Chloride 102.8 mmol/L (98-107) 11/26/20 05:31 Carbon Dioxide 30 mmol/L (22-30) 11/26/20 05:31 Anion Gap 9 mmol/L 11/26/20 05:31 BUN 9 mg/dL (9-20) 11/26/20 05:31 Creatinine 0.7 mg/dL (0.8-1.3) L 11/26/20 05:31 Estimated GFR > 60 ml/min 11/26/20 05:31 BUN/Creatinine Ratio 13 % 11/26/20 05:31 Glucose 90 mg/dL (75-100) 11/26/20 05:31 POC Glucose 91 mg/dL (70-105) 11/25/20 08:08 Calcium 7.9 mg/dL (8.4-10.2) L 11/26/20 05:31 Total Bilirubin 1.10 mg/dL (0.1-1.2) 11/26/20 05:31 AST 34 units/L (5-40) 11/26/20 05:31 ALT 135 units/L (7-56) H 11/26/20 05:31 Alkaline Phosphatase 128 units/L (35-129) 11/26/20 05:31 Total Protein 6.3 g/dL (6.3-8.2) 11/26/20 05:31 Albumin 3.8 g/dL (3.9-5) L 11/26/20 05:31 Albumin/Globulin Ratio 1.5 % 11/26/20 05:31 Lipase 71 units/L (13-60) H 11/26/20 05:31 Urine Color Yellow (Yellow) 11/24/20 Unknown Urine Turbidity Slightly-cloudy (Clear) 11/24/20 Unknown Urine pH 5.0 (5.0-7.0) 11/24/20 Unknown Ur Specific [place] 1.017 (1.003-1.030) 11/24/20 Unknown Urine Protein <15 mg/dl mg/dL (Negative) 11/24/20 Unknown Urine Glucose (UA) Neg mg/dL (Negative) 11/24/20 Unknown Urine Ketones Neg mg/dL (Negative) 11/24/20 Unknown Urine Blood Sm (Negative) 11/24/20 Unknown Urine Nitrite Neg (Negative) 11/24/20 Unknown Urine Bilirubin Neg (Negative) 11/24/20 Unknown Urine Urobilinogen < 2.0 mg/dL (<2.0) 11/24/20 Unknown Ur Leukocyte Esterase Neg (Negative) 11/24/20 Unknown Urine WBC (Auto) 2.0 /HPF (0.0-6.0) 11/24/20 Unknown Urine RBC (Auto) 3.0 /HPF (0.0-6.0) 11/24/20 Unknown U Epithel Cells (Auto) 3.0 /HPF (0-13.0) 11/24/20 Unknown Amorphous Crystals Few 11/24/20 Unknown Urine Mucus Few /HPF 11/24/20 Unknown Gong/IV: Voiding Method Toilet Active Medications - Current Medications Current Medications: Generic Name Dose Route Start Last Admin Trade Name Freq PRN Reason Stop Dose Admin Acetaminophen 650 mg 11/24/20 14:20 Acetaminophen 325 Mg Tab PO Q4H PRN Pain MILD(1-3)/Fever >100.5/PAINTING Albuterol 2.5 mg 11/24/20 14:20 Albuterol 2.5 Mg/3 Ml Nebu IH Q4HRT PRN Shortness Of Breath Enoxaparin Sodium 40 mg 11/26/20 22:00 11/26/20 22:55 Enoxaparin 40 Mg/0.4 Ml Inj SUB-Q Not Given QDAY@2200 [facility] Protocol Hydromorphone HCl 0.5 mg 11/24/20 14:20 11/25/20 09:07 Hydromorphone 1 Mg/1 Ml Inj IV 0.5 mg Q6H PRN Administration Pain , Severe (7-10) Sodium Chloride 1,000 mls @ 125 mls/hr 11/24/20 14:30 11/27/20 01:41 Nacl 0.9% 1000 Ml IV 125 mls/hr DIRECT SHARONDA Administration Ondansetron HCl 4 mg 11/24/20 14:20 11/24/20 19:28 Ondansetron 4 Mg/2 Ml Inj IV 4 mg Q8H PRN Administration Nausea And Vomiting Oxycodone/Acetaminophen 1 tab 11/24/20 14:20 11/27/20 01:38 Oxycodone /Acetaminophen 5-325mg Tab PO 1 tab Q12H PRN Administration Pain, Moderate (4-6) Sodium Chloride 10 ml 11/24/20 22:00 11/26/20 22:54 Sodium Chloride 0.9% 10 Ml Flush Syringe IV 10 ml BID SHARONDA Administration Sodium Chloride 10 ml 11/24/20 14:20 Sodium Chloride 0.9% 10 Ml Flush Syringe IV PRN PRN LINE FLUSH
--- NOTE | 2020-11-27 14:52 | Gastroenterology Consultation ---
History of Present Illness - Reason for Consult Consult date: 11/27/20 Pancreatitis Requesting physician: INDRA ARRIAZA - History of Present Illness The patient is a 35 yo male admitted with acute pancreatitis and N/V/abdominal pain. His LFTs were elevated on admit, and he has no hx of excess NSAIDs, new medications, or herbals. He denies excess EtOH. In 3 days, his N/V has resolved, and he is eating a regular diet with minimal abdominal pain. He has no chest pain or shortness of breath. He denies prior abdominal surgery, or family hx of gallstones. Past History Past Medical History: No medical history Past Surgical History: No surgical history Social history: single. denies: smoking, alcohol abuse, prescription drug abuse Family history: denies: no significant family history Medications and Allergies Allergies Allergy/AdvReac Type Severity Reaction Status Date / Time No Known Allergies Allergy Verified 11/24/20 11:52 Home Medications Medication Instructions Recorded Confirmed Last Taken Type No Known Home Medications [No 11/24/20 11/24/20 Unknown History Reported Home Medications] Active Meds: Active Medications Acetaminophen (Acetaminophen 325 Mg Tab) 650 mg PO Q4H PRN PRN Reason: Pain MILD(1-3)/Fever >100.5/PAINTING Albuterol (Albuterol 2.5 Mg/3 Ml Nebu) 2.5 mg IH Q4HRT PRN PRN Reason: Shortness Of Breath Enoxaparin Sodium (Enoxaparin 40 Mg/0.4 Ml Inj) 40 mg SUB-Q QDAY@2200 SHARONDA; Protocol Last Admin: 11/26/20 22:55 Dose: Not Given Documented by: Hydromorphone HCl (Hydromorphone 1 Mg/1 Ml Inj) 0.5 mg IV Q6H PRN PRN Reason: Pain , Severe (7-10) Last Admin: 11/25/20 09:07 Dose: 0.5 mg Documented by: Sodium Chloride (Nacl 0.9% 1000 Ml) 1,000 mls @ 125 mls/hr IV DIRECT SHARONDA Last Admin: 11/27/20 11:19 Dose: 125 mls/hr Documented by: Ondansetron HCl (Ondansetron 4 Mg/2 Ml Inj) 4 mg IV Q8H PRN PRN Reason: Nausea And Vomiting Last Admin: 11/24/20 19:28 Dose: 4 mg Documented by: Oxycodone/Acetaminophen (Oxycodone /Acetaminophen 5-325mg Tab) 1 tab PO Q12H PRN PRN Reason: Pain, Moderate (4-6) Last Admin: 11/27/20 01:38 Dose: 1 tab Documented by: Sodium Chloride (Sodium Chloride 0.9% 10 Ml Flush Syringe) 10 ml IV BID SHARONDA Last Admin: 11/27/20 11:19 Dose: 10 ml Documented by: Sodium Chloride (Sodium Chloride 0.9% 10 Ml Flush Syringe) 10 ml IV PRN PRN PRN Reason: LINE FLUSH I HAVE REVIEWED / RECONCILED MEDICATIONS Review of Systems - Review of Systems All systems: negative (as noted in the HPI) Exam - Constitutional Vital Signs: Temp Pulse Resp BP Pulse Ox 98.5 F 65 20 152/91 98 11/27/20 11:33 11/27/20 11:33 11/27/20 11:33 11/27/20 11:33 11/27/20 11:33 General appearance: no acute distress - EENT Eyes: PERRL, EOM intact ENT: hearing intact, clear oral mucosa - Neck Neck: supple, normal ROM - Respiratory Respiratory effort: normal Respiratory: bilateral: CTA - Cardiovascular Rhythm: regular Heart Sounds: Present: S1 & S2 Extremities: no ischemia, No edema - Gastrointestinal General gastrointestinal: Present: soft, non-tender, non-distended - Integumentary Integumentary: Present: clear, warm, dry - Neurologic Neurological: alert and oriented x3 - Labs CBC & Chem 7: 11/26/20 05:31 11/26/20 05:31 Lab Results: Laboratory Results - last 24 hr 11/27/20 13:28 Lipase 41 Assessment and Plan - Patient Problems (1) Pancreatitis, gallstone Current Visit: Yes Status: Acute Plan to address problem: - The symptoms appear to be resolving, and CBD is only 3mm on imaging; I doubt a retained gallstone. - If MRCP is negative for retained stone, the patient can be discharged to home with followup with surgery; ERCP if retained stone seen.
--- NOTE | 2020-11-27 17:12 | Magnetic Resonance Report ---
MRCP INDICATION / CLINICAL INFORMATION: gallstone pancreatitis. TECHNIQUE: Multiplanar, multisequence series were obtained through the abdomen. COMPARISON: CT and ultrasound 3 days prior FINDINGS: LOWER CHEST: No significant abnormality. LIVER: No significant abnormality. GALLBLADDER: There are innumerable tiny stones filling the gallbladder. BILE DUCTS: No significant abnormality. PANCREAS: The pancreatic parenchyma is mildly edematous diffusely. No peripancreatic fluid collection s or pancreatic duct dilatation. SPLEEN: No significant abnormality. ADRENALS: No significant abnormality. RIGHT KIDNEY / URETER: No significant abnormality. LEFT KIDNEY / URETER: No significant abnormality. STOMACH / VISUALIZED BOWEL: No significant abnormality. PERITONEUM: No free fluid. No free air. No fluid collection. LYMPH NODES: No significant adenopathy. AORTA / ARTERIES: No significant abnormality. IVC / VEINS: No significant abnormality. ADDITIONAL FINDINGS: None. SKELETAL SYSTEM: No significant abnormality. IMPRESSION: 1. No biliary dilatation or choledocholithiasis is seen. 2. Cholelithiasis. 3. Mild pancreatitis. No pancreatitis-related complications are seen. Signer Name: Bimal Martinez MD Signed: 11/27/2020 5:08 PM Workstation Name: [id number]
[2020-11-27] MEDS: ENOXAPARIN 40 MG/0.4 ML INJ SUB-Q SCH (22:23)
[2020-11-28 03:46] VITALS: BP 140/75
[2020-11-28] MEDS: SODIUM CHLORIDE 0.9% 1000 ML 1,000 ML IV SCH (05:52)
--- NOTE | 2020-11-28 08:31 | Discharge Summary ---
Providers - Providers Date of Admission: 11/24/20 14:20 Date of discharge: 11/28/20 Attending physician: INDRA ARRIAZA 11/26/20 18:12 Consult to Physician [CONS] Routine Comment: Consulting Provider: REKHA LARRY Physician Instructions: Reason For Exam: Ac.pancreatitis/lipase improving/Surg rec GI eval Primary care physician: CAREER MANAGER Hospitalization Reason for admission: Abdominal pain/nausea vomiting/acute pancreatitis Condition: Stable Pertinent studies: CT abdomen and pelvis; inflammatory changes 2nd 3rd segment duodenum involving pancreas duodenitis versus pancreatitis Abdominal ultrasound; cholelithiasis without evidence of acute cholecystitis Moderate diffuse fatty infiltration of the liver MRCP; no biliary dilatation or choledocholithiasis Meena lithiasis Mild pancreatitis no pancreatitis related complications seen Hospital course: 35-year-old obese male patient was admitted through emergency room with abdominal pain and nausea vomiting of 2 days duration. Patient was initially evaluated CT abdomen and pelvis findings consistent with acute pancreatitis and cholelithiasis without acute cholecystitis Patient was symptomatically managed with pain medications IV fluids, evaluated by surgeon Dr. Curran, recommended symptomatic management and GI consultation GI was consulted MRCP was done which did not show any gallstone obstruction, however showed multiple gallstones Surgery and GI cleared for discharge and follow-up in 1 to 2 weeks in the office for further evaluation and management Today patient is comfortable no nausea vomiting or abdominal pain Tolerating diet, Vital signs stable, Physical examination prior to discharge no new changes Stable at discharge Advised weight reduction and strict low-fat diet Patient verbalized understanding Discharge diagnosis: --Acute pancreatitis, gallstone Current Visit: Yes Status: Acute Patient symptoms significantly improved Lipase levels and LFTs trending down to near normal levels Tolerating clear liquids, GI and surgery evaluated the patient GI recommend MRCP, follow report --Cholelithiasis; without cholecystitis Current Visit: Yes Status: Acute Surgery evaluated the patient No surgical intervention at this point Supportive care --Acute transaminitis; Current Visit: Yes Status: Acute elevated LFTs due to acute pancreatitis Trending down to near normal levels GI evaluated --Ongoing tobacco use; Current Visit: Yes Status: Chronic Smoking cessation --Obesity BMI 37.0 Current Visit: Yes Status: Acute Patient advised dietary modification exercise as tolerated weight reduction When medically stable , Stable at discharge Disposition: 01 HOME / SELF CARE / HOMELESS Final Discharge Diagnosis (Prints w/discharge instructions): Acute gallstone pancreatitis/symptoms improved. Cholelithiasis without cholecystitis. Acute transaminitis/improved. Obesity BMI 37.0. Ongoing tobacco use Time spent for discharge: 35 min Core Measure Documentation - Palliative Care Palliative Care/ Comfort Measures: Not Applicable - Core Measures Any of the following diagnoses?: none Exam - Constitutional Vitals: Temp Pulse Resp BP Pulse Ox 97.6 F 54 L 16 140/75 100 11/28/20 03:35 11/28/20 03:35 11/28/20 03:35 11/28/20 03:35 11/28/20 03:35 General appearance: Present: no acute distress, obese - EENT Eyes: Present: PERRL, EOM intact - Neck Neck: Present: supple, normal ROM - Respiratory Respiratory effort: normal Respiratory: bilateral: diminished, negative: rales, rhonchi, wheezing - Cardiovascular Rhythm: regular Heart Sounds: Present: S1 & S2 - Extremities Extremities: no ischemia, No edema - Abdominal General gastrointestinal: Present: soft, non-tender, non-distended - Integumentary Integumentary: Present: clear, warm - Musculoskeletal Musculoskeletal: strength equal bilaterally, generalized weakness - Psychiatric Psychiatric: appropriate mood/affect, cooperative - Neurologic Neurologic: moves all extremities Plan Activity: no restrictions Diet: low fat Special Instructions: smoking cessation Additional Instructions: Strongly advised low-fat diet. Advised diet modification, lifestyle changes, exercise as tolerated and weight reduction when you are medically stable. Advised smoking cessation, nicotine patch as needed. If you have worsening symptoms contact MD or go to the nearest emergency room as needed Follow up with: PRIMARY CARE, [Primary Care Provider] - 7 Days SUNG TOMPKINS MD [Staff Physician] - 14 Days REKHA LARRY MD [Staff Physician] - 14 Days Prescriptions: Nicotine [Habitrol] 14 mg TD DAILY #30 patch oxyCODONE /ACETAMINOPHEN [Percocet 5/325 mg] 1 tab PO Q12H PRN #10 tablet PRN Reason: Pain, Moderate (4-6) Pantoprazole [Protonix] 40 mg PO QDAY #30 tablet Ondansetron [Zofran Odt] 4 mg PO Q8HR #20 tab.amparo
== END 2020-11-28 12:12 | disposition home or self-care (01) | DRG 439 ==
LOC: ED 10:59 → 3A 14:20 → 4A 20:49
PROVIDERS: ADMIT Internal Medicine; ATTEND Internal Medicine
DX: K85.10 Biliary acute pancreatitis without necrosis or infection (principal); E66.2 Morbid (severe) obesity with alveolar hypoventilation; K80.21 Calculus of gallbladder without cholecystitis with obstruction; Z68.37 Body mass index [BMI] 37.0-37.9, adult; K80.20 Calculus of gallbladder without cholecystitis without obstruction; Z72.0 Tobacco use
CPT/HCPCS: 36415; 74177; 74181; 76705; 80053; 81001; 82962; 83690; 85025; 93306; G0378; J1170; J1650; J1885; J2405; J7030; Q9967